=== PATIENT | male | born 1930 | race Caucasian/White ===

== ENCOUNTER 2016-10-05 22:53 | Emergency (ER) | payer OTHER ==
[~2016-10-05] VITALS: Ht 170.2 cm; Wt 60.1 kg
[2016-10-05 23:48] LABS: HEMATOCRIT 31.4 % (38.0-50.0); MCH 26.1 PG (29.0-34.0); MCHC 30.3 G/DL (30.0-36.0); MCV 86.3 FL (86-99); MEAN PLAT.VOLUME 9.5 uM^3 (9.0-12.4); PLATELET COUNT 363 K/uL (156-360); RBC DIS.WIDTH-CV 16.7 % (11.8-14.6); RBC DIS.WIDTH-SD 52.3 % (39-53); RED BLOOD COUNT 3.64 M/uL (4.00-5.50); WHITE BLOOD COUNT 9.4 K/uL (4.1-10.2)
[2016-10-05 23:59] LABS: CHLORIDE 108 mEq/L (99-109); POTASSIUM 4.4 mEq/L (3.7-5.4)
[2016-10-06] LABS: SODIUM 139 mEq/L (136-147)
[2016-10-06 00:02] LABS: GLUCOSE 112 mg/dL (70-99)
[2016-10-06 00:03] LABS: ANION GAP 9 MEQ/L (2-14)
[2016-10-06 00:04] LABS: TOTAL BILIRUBIN 0.4 mg/dL (0.0-1.0)
[2016-10-06 00:05] LABS: ALKALINE PHOSPHATASE 81 IU/L (3-129)
[2016-10-06 00:06] LABS: GFR ESTIMATE (CALCULATED) > 59 mL/min/
[2016-10-06 00:07] LABS: DIRECT BILIRUBIN 0.2 mg/dL (0.0-0.3); UREA NITROGEN (BUN) 21 mg/dL (9-23)
[2016-10-06 00:09] LABS: LIPASE 9 U/L (1.0-51.0)
[2016-10-06 00:17] LABS: ADD MIUA? YES; BILIRUBIN NEGATIVE; BLOOD SMALL; COLOR YELLOW ((YELLOW)); GLUCOSE (STRIP) NEGATIVE; KETONES 5; LEUKOCYTES SMALL; NITRITE NEGATIVE; PROTEIN (STRIP) 100; SPECIFIC GRAVITY 1.013 (1.000-1.030); UROBILINOGEN 0.2 MG/DL (0.2-1.0)
[2016-10-06 00:59] LABS: RED BLOOD CELLS TNTC /HPF (0-5); WHITE BLOOD CELLS TNTC /HPF (0-5)
[2016-10-06 01:00] LABS: BACTERIA 3+ /HPF; UCUL ADDED? YES
[2016-10-06 01:01] LABS: CRYSTALS PRESENT
[2016-10-06] MEDS ORDERED: KEFLEX500 MG PO (01:06)
[2016-10-06 02:38] VITALS: BP 99/66
== END 2016-10-06 02:41 | disposition home or self-care (01) ==
LOC: EME 22:53
PROVIDERS: Emergency Medicine
DX: N39.0 Urinary tract infection, site not specified (principal); Z85.46 Personal history of malignant neoplasm of prostate; Z74.01 Bed confinement status
CPT/HCPCS: 80048; 80076; 81003; 83605; 83690; 85027; 87040; 87077; 87086; 87186; 99281; 99285; J0696; J7030; J7050

== ENCOUNTER 2017-03-25 16:19 | Inpatient (IN) | payer OTHER ==
[~2017-03-25] VITALS: Ht 170.2 cm; Wt 56.2 kg
[~2017-03-25 16:19] MED LIST: KEFLEX500 MG PO
[2017-03-25 18:43] LABS: HEMATOCRIT 27.9 % (38.0-50.0); MCH 27.5 PG (29.0-34.0); MCHC 30.5 G/DL (30.0-36.0); MCV 90.3 FL (86-99); MEAN PLAT.VOLUME 9.9 uM^3 (9.0-12.4); PLATELET COUNT 194 K/uL (156-360); RBC DIS.WIDTH-CV 17.3 % (11.8-14.6); RBC DIS.WIDTH-SD 56.1 % (39-53); RED BLOOD COUNT 3.09 M/uL (4.00-5.50)
[2017-03-25 18:52] LABS: CHLORIDE 98 mEq/L (99-109); POTASSIUM 5.2 mEq/L (3.7-5.4); SODIUM 133 mEq/L (136-147)
[2017-03-25 18:54] LABS: GLUCOSE 151 mg/dL (70-99)
[2017-03-25 18:55] LABS: ANION GAP 9 MEQ/L (2-14)
[2017-03-25 18:56] LABS: TOTAL BILIRUBIN 0.5 mg/dL (0.0-1.0)
[2017-03-25 18:57] LABS: ALKALINE PHOSPHATASE 115 IU/L (3-129)
[2017-03-25 18:58] LABS: GFR ESTIMATE (CALCULATED) > 59 mL/min/
[2017-03-25 18:58] LABS: ADD MIUA? YES; BILIRUBIN NEGATIVE; BLOOD LARGE; COLOR BROWN ((YELLOW)); GLUCOSE (STRIP) NEGATIVE; KETONES NEGATIVE; LEUKOCYTES LARGE; NITRITE NEGATIVE; PROTEIN (STRIP) >2000; SPECIFIC GRAVITY 1.023 (1.000-1.030); UROBILINOGEN 0.2 MG/DL (0.2-1.0)
[2017-03-25 18:59] LABS: DIRECT BILIRUBIN 0.3 mg/dL (0.0-0.3); UREA NITROGEN (BUN) 33 mg/dL (9-23)
[2017-03-25 19:01] LABS: LIPASE 10 U/L (1.0-51.0)
[2017-03-25 19:03] LABS: TROP-I INTERPRETATION NEGATIVE; TROPONIN-I 0.07 ng/mL (0.0-0.30)
[2017-03-25 19:16] LABS: RED BLOOD CELLS TNTC /HPF (0-5); UCUL ADDED? YES; WHITE BLOOD CELLS TNTC /HPF (0-5)
[2017-03-25 19:35] LABS: ABS NEUTROPHIL COUNT 6.3; ANISOCYTOSIS 1+; BAND NEUTROPHILS 18.2 % (0-8.0); BASOPHILS 0.9 %; EOSINOPHIL ABS CT 0.1; EOSINOPHILS 1.7 % (0-5.0); HYPOCHROMASIA 1+; INSTRUMENT ABS NEUTROPHIL CT 5.7 K/uL; LYMPHOCYTES 3.5 % (15.0-45.0); PLAT.SUFFICIENCY ADEQUATE; POLYCHROMASIA 1+; SEG.NEUTROPHILS 71.3 % (46.0-76.0)
[2017-03-25] MEDS ORDERED: CRANBERRY200 MG PO (21:24)
[2017-03-25] MEDS ORDERED: ONCE DAILY1 EACH PO (21:24)
[2017-03-25] MEDS ORDERED: MOTRIN IB200 MG PO (21:28)
[2017-03-25] MEDS ORDERED: SAMBUCOL PO (21:28)
[2017-03-25] MEDS ORDERED: MANUKA HONEY TP (21:31)
[2017-03-26] VITALS (22 sets, daily range): BP systolic 85–115; BP diastolic 44–82
[2017-03-26 04:29] LABS: METH RESISTANT S AUREUS PCR POSITIVE (NEGATIVE)
[2017-03-26 04:31] LABS: PROBE CHECK PASS
[2017-03-27] VITALS (25 sets, daily range): BP systolic 70–116; BP diastolic 50–75
[2017-03-27 05:37] LABS: HEMATOCRIT 25.8 % (38.0-50.0); MCH 27.2 PG (29.0-34.0); MCHC 30.2 G/DL (30.0-36.0); MCV 89.9 FL (86-99); RBC DIS.WIDTH-CV 17.4 % (11.8-14.6); RBC DIS.WIDTH-SD 56.6 % (39-53); RED BLOOD COUNT 2.87 M/uL (4.00-5.50); WHITE BLOOD COUNT 6.5 K/uL (4.1-10.2)
[2017-03-27 06:16] LABS: ANION GAP 8 MEQ/L (2-14); CHLORIDE 113 MEQ/L (99-109); GFR ESTIMATE (CALCULATED) > 59 mL/min/; GLUCOSE 156 mg/dL (70-99); SAMPLE HEMOLYSIS CHECK 1; SAMPLE ICTERIC CHECK 0; SAMPLE LIPEMIA CHECK 0; UREA NITROGEN (BUN) 27 mg/dL (9-23)
[2017-03-27 06:17] LABS: SODIUM 140 MEQ/L (136-147)
[2017-03-27 07:02] LABS: EOSINOPHIL (%) 0.6 % (0-5); IMMATURE GRANULOCYTE (%) 1.2 % (0.0-0.7); IMMATURE GRANULOCYTE COUNT 0.1 K/uL; LYMPHOCYTE COUNT 0.9 K/uL (1.0-2.8); MEAN PLAT.VOLUME 10.2 uM^3 (9.0-12.4); MONOCYTE (%) 7.1 % (3-12); MONOCYTE COUNT 0.5 K/uL (0-0.8); NEUTROPHIL (%) 76.4 % (45-76); PLAT.SUFFICIENCY ADEQUATE; PLATELET COUNT 153 K/uL (156-360)
[2017-03-28] VITALS (18 sets, daily range): BP systolic 89–142; BP diastolic 52–115
[2017-03-28 05:54] LABS: ANION GAP 8 MEQ/L (2-14); CHLORIDE 116 MEQ/L (99-109); GFR ESTIMATE (CALCULATED) > 59 mL/min/; GLUCOSE 127 mg/dL (70-99); POTASSIUM 4.1 MEQ/L (3.7-5.4); SAMPLE HEMOLYSIS CHECK 0; SAMPLE ICTERIC CHECK 0; SAMPLE LIPEMIA CHECK 0; SODIUM 144 MEQ/L (136-147); UREA NITROGEN (BUN) 21 mg/dL (9-23)
[2017-03-28 05:58] LABS: EOSINOPHIL (%) 1.4 % (0-5); EOSINOPHIL COUNT 0.1 K/uL (0-0.3); HEMATOCRIT 26.8 % (38.0-50.0); IMMATURE GRANULOCYTE (%) 1.1 % (0.0-0.7); IMMATURE GRANULOCYTE COUNT 0.1 K/uL; INSTRUMENT ABS NEUTROPHIL CT 4.2 K/uL; MCH 27.8 PG (29.0-34.0); MCHC 29.5 G/DL (30.0-36.0); MONOCYTE (%) 6.3 % (3-12); MONOCYTE COUNT 0.4 K/uL (0-0.8); NEUTROPHIL (%) 73.5 % (45-76); NEUTROPHIL COUNT 4.2 K/uL (1.8-6.4); RBC DIS.WIDTH-CV 17.5 % (11.8-14.6); RBC DIS.WIDTH-SD 59.7 % (39-53); RED BLOOD COUNT 2.84 M/uL (4.00-5.50); WHITE BLOOD COUNT 5.7 K/uL (4.1-10.2)
[2017-03-28 05:59] LABS: MCV 94.4 FL (86-99); PLATELET COUNT 220 K/uL (156-360)
== END 2017-03-28 17:45 | disposition hospice, home (50) | DRG 871 ==
LOC: EME 16:19 → 4WEST 22:20 → EDOF 22:20 → ENRESERV 22:23 → CANRESERV 22:55 → ENRESERV 22:55 → EDOF 03-26 01:15 → ENRESERV 03-26 01:17 → 4WEST 03-26 02:44
PROVIDERS: Emergency Medicine; Internal Medicine Critical Care Medicine; Surgery
PROC: 02HV33Z Insertion of Infusion Device into Superior Vena Cava, Percutaneous Approach (ICD-10-PCS; principal; 2017-03-25)
DX: A41.59 Other Gram-negative sepsis (principal); R65.21 Severe sepsis with septic shock; E41 Nutritional marasmus; Z68.1 Body mass index [BMI] 19.9 or less, adult; E87.2 Acidosis; Z74.01 Bed confinement status; Z51.5 Encounter for palliative care; Z66 Do not resuscitate; E86.1 Hypovolemia; E87.1 Hypo-osmolality and hyponatremia; N10 Acute pyelonephritis; D64.9 Anemia, unspecified; F03.90 Unspecified dementia, unspecified severity, without behavioral disturbance, psychotic disturbance, mood disturbance, and anxiety; M81.0 Age-related osteoporosis without current pathological fracture; L89.159 Pressure ulcer of sacral region, unspecified stage; S31.811A Laceration without foreign body of right buttock, initial encounter; K65.1 Peritoneal abscess; I69.354 Hemiplegia and hemiparesis following cerebral infarction affecting left non-dominant side; I69.398 Other sequelae of cerebral infarction; R47.9 Unspecified speech disturbances; N13.9 Obstructive and reflux uropathy, unspecified; R32 Unspecified urinary incontinence; Z92.3 Personal history of irradiation; Z85.46 Personal history of malignant neoplasm of prostate
CPT/HCPCS: 71010; 80048; 80053; 81003; 82248; 83605; 83690; 84484; 85025; 87040; 87076; 87086; 87185; 87641; 87801; 92526 GN; 92610 GN; 93005; 99281; 99285; C1751; J0610; J0696; J1650; J2543; J3370; J7030; J7050